=== PATIENT | male | born 1935 | race Hispanic/Latino ===

== ENCOUNTER 2020-06-12 21:00 | Observation (INO) | payer MEDICARE ==
[~2020-06-12] VITALS: Ht 182.9 cm; Wt 79.4 kg
[2020-06-12] MEDS ORDERED: NIFEDIPINE 10 MG CAP ONE (21:30)
[2020-06-12 21:47] LABS: APPEARANCE,URINE Clear (CLEAR); BILIRUBIN,URINE Negative (NEGATIVE); COLOR,URINE Yellow (YELLOW); GLUCOSE, URINE (UA) Negative (NEGATIVE); KETONES,URINE Negative (NEGATIVE); LEUKOCYTE ESTERASE ,URINE Negative (NEGATIVE); NITRATE,URINE Negative (NEGATIVE); OCCULT BLOOD,URINE Negative (NEGATIVE); PH,URINE 8.5 (5.0-8.0); PROTEIN,URINE Negative (NEGATIVE); UROBILINOGEN,URINE 0.2 mg/dL (0.2-1.0)
[2020-06-12 21:51] LABS: BASOPHILS % (AUTO) 0.3 % (0.0-5.0); EOSINOPHILS % (AUTO) 1.6 % (0.0-8.0); LYMPHOCYTES % (AUTO) 16.3 % (21.0-51.0); MEAN CORPUSCULAR HEMOGLOBIN 32.4 pg (27.0-33.0); MEAN CORPUSCULAR VOLUME 95.2 fL (79-99); MONOCYTES % (AUTO) 5.6 % (3.0-13.0); NEUTROPHILS % (AUTO) 75.8 % (40.0-77.0); PLATELET COUNT (AUTO) 198 K/uL (130-400); WHITE BLOOD COUNT (AUTO) 10.9 K/uL (4.8-10.8)
[2020-06-12 21:52] LABS: CREATININE 1.1 mg/dL (0.5-1.5); POTASSIUM 3.9 mmol/L (3.5-5.1)
[2020-06-12 21:56] LABS: INR 0.99 (0.85-1.15); PROTHROMBIN TIME 10.8 SEC (9.6-11.6)
[2020-06-12 21:57] LABS: PARTIAL THROMBOPLASTIN TIME 26.1 SEC (26.3-35.5)
[2020-06-12 22:03] LABS: BILIRUBIN,TOTAL 0.4 mg/dL (0.2-1.0); TOTAL PROTEIN, SERUM 8.3 g/dL (6.0-8.3)
[2020-06-13] MEDS ORDERED: ACETAMINOPHEN 325 MG TAB PO PRN ×2 (00:30)
[2020-06-13] MEDS ORDERED: LISINOPRIL 10 MG TABLET PO SCH (00:30)
[2020-06-13] MEDS ORDERED: TEMAZEPAM 7.5 MG CAPSULE PO SCH (00:30)
[2020-06-13] MEDS ORDERED: METOPROLOL TARTRATE 25 MG TAB PO SCH (00:30)
[2020-06-13] MEDS ORDERED: ATORVASTATIN CALCIUM 40 MG TABLET PO SCH (00:30)
[2020-06-13] MEDS ORDERED: NITROGLYCERIN 1GM/1 INCH PACKET TD SCH (00:30)
[2020-06-13] MEDS ORDERED: ONDANSETRON HCL 4 MG/2 ML VIAL IV PRN (00:30)
[2020-06-13] MEDS ORDERED: LACTULOSE 20 GM/30 ML UDCUP PO PRN (00:30)
[2020-06-13] MEDS ORDERED: MORPHINE SULFATE 2 MG/ML 1ML SYG IV PRN (00:30)
[2020-06-13 04:09] LABS: HEMOGLOBIN A1C 5.6 % (4.0-6.0)
[2020-06-13 04:16] LABS: CHOLESTEROL 160 mg/dL (<200); HDL CHOLESTEROL 126 mg/dL (29-71); LDL DIRECT 75 mg/dL (0-99); TRIGLYCERIDES 34 mg/dL (30-200)
[2020-06-13 04:27] LABS: CREATINE KINASE, TOTAL 48 U/L (21-232); MYOGLOBIN 62 ng/mL (10-92); THYROID STIMULATING HORMONE 1.13 uIU/mL (0.36-3.74); TROPONIN I < 0.04 ng/mL (0.00-0.06)
[2020-06-13 08:09] LABS: CREATINE KINASE, TOTAL 56 U/L (21-232); MYOGLOBIN 128 ng/mL (10-92); TROPONIN I < 0.04 ng/mL (0.00-0.06)
[2020-06-13] MEDS ORDERED: ASPI-1012 PO (08:30)
[2020-06-13] MEDS ORDERED: METO25 PO (08:30)
[2020-06-13] MEDS ORDERED: LISI10TA7 PO (08:30)
[2020-06-13] MEDS ORDERED: ATOR40TA69 PO (08:30)
[2020-06-13] MEDS ORDERED: ENOXAPARIN SODIUM 30 MG/0.3 ML SQ SCH (09:00)
[2020-06-13] MEDS ORDERED: FAMOTIDINE 20MG TAB 20 MG TAB PO SCH (09:00)
[2020-06-13] MEDS ORDERED: ASPIRIN 325 MG TABLET PO SCH (09:00)
== END 2020-06-13 10:46 | disposition home or self-care (01) ==
LOC: EDH 21:00 → EDHIP 06-13 00:18
PROVIDERS: ADMIT Internal Medicine; ATTEND Internal Medicine
DX: R07.89 Other chest pain (principal); I16.0 Hypertensive urgency; I10 Essential (primary) hypertension; K21.9 Gastro-esophageal reflux disease without esophagitis; F03.90 Unspecified dementia, unspecified severity, without behavioral disturbance, psychotic disturbance, mood disturbance, and anxiety; I24.9 Acute ischemic heart disease, unspecified; I45.10 Unspecified right bundle-branch block; Z79.899 Other long term (current) drug therapy
CPT/HCPCS: 36415 ×2; 71045; 80053; 80061; 81003; 82550 ×3; 83036; 83874 ×2; 84443; 84484 ×3; 85025; 85610; 85730; 93005 ×4; 99291; G0378 ×10